=== PATIENT | female | born 2000 | race Caucasian/White ===

== ENCOUNTER 2021-02-22 23:46 | Inpatient (IN) | payer OTHER ==
[~2021-02-22] VITALS: Ht 167.6 cm; Wt 52.2 kg
== END 2021-02-26 12:45 | disposition home or self-care (01) | DRG 779 ==
LOC: ER 23:46 → OB/GYN 02-23 11:02
PROVIDERS: ADMIT Obstetrics & Gynecology; ATTEND Obstetrics & Gynecology
PROC: BU4CZZZ Ultrasonography of Uterus and Ovaries (ICD-10-PCS; principal; 2021-02-23)
PROC: BW40ZZZ Ultrasonography of Abdomen (ICD-10-PCS; 2021-02-25)
DX: O04.89 (Induced) termination of pregnancy with other complications (principal); G89.18 Other acute postprocedural pain

== ENCOUNTER 2022-03-03 10:29 | Emergency (ER) | payer OTHER ==
[~2022-03-03] VITALS: Ht 167.6 cm; Wt 52.2 kg
[2022-03-03] MEDS ORDERED: PROAIR RESPICL90 MCG (11:00)
== END 2022-03-03 14:39 | disposition home or self-care (01) ==
LOC: ER 10:29
DX: U07.1 COVID-19 (principal)

== ENCOUNTER 2022-08-23 18:12 | Emergency (ER) | payer OTHER ==
[~2022-08-23] VITALS: Ht 162.6 cm; Wt 54.4 kg
[~2022-08-23 18:12] MED LIST: PROAIR RESPICL90 MCG
== END 2022-08-23 22:50 | disposition home or self-care (01) ==
LOC: ER 18:12
DX: S01.91XA Laceration without foreign body of unspecified part of head, initial encounter (principal); W19.XXXA Unspecified fall, initial encounter; Y93.9 Activity, unspecified; Y92.9 Unspecified place or not applicable; Y99.9 Unspecified external cause status; M62.838 Other muscle spasm; M54.9 Dorsalgia, unspecified